=== PATIENT | female | born 2000 | race African-American/Black ===

== ENCOUNTER 2020-08-17 08:27 | Emergency (ER) | payer MEDICAID ==
[~2020-08-17] VITALS: Ht 162.6 cm; Wt 73.0 kg
[2020-08-17 09:44] LABS: BASOPHILS % 0.2 % (0.0-2.0); EOSINOPHILS % 4.2 % (0.0-5.0); HEMATOCRIT. 29.3 % (36.0-48.0); HEMOGLOBIN. 9.2 g/dL (12.0-16.0); LYMPHOCYTES % 8.3 % (20.0-50.0); MEAN CORPUSCULAR HEMOGLOBIN 25.3 pg (28.0-32.0); MEAN CORPUSCULAR VOLUME 80.7 fL (81.0-99.0); MEAN PLATELET VOLUME 8.9 fl (7.4-10.4); MONOCYTES % 7.1 % (2.0-8.0); NEUTROPHILS % 80.2 % (40.0-76.0); PLATELET 215 x1000/uL (130-400); RED BLOOD CELL COUNT 3.63 mill/uL (4.2-5.4); RED CELL DISTRIBUTION WIDTH 17.5 % (11.6-14.6)
[2020-08-17 09:53] LABS: CHLORIDE 107 mEq/L (98-107)
[2020-08-17 10:17] LABS: B-HCG QUANTITATIVE 62583 mIU/mL (<3)
[2020-08-17 11:40] VITALS: BP 121/65
== END 2020-08-17 11:41 | disposition home or self-care (01) ==
LOC: ER 08:27
DX: O26.892 Other specified pregnancy related conditions, second trimester (principal); R55 Syncope and collapse; Z3A.16 16 weeks gestation of pregnancy
CPT/HCPCS: 36415; 76805; 80053; 83880; 84484; 84702; 85025; 86850; 86900; 86901; 93005; 99285; Z7610